=== PATIENT | male | born 1955 | race Caucasian/White ===

== ENCOUNTER → 2018-12-07 | Outpatient (CLI) | payer OTHER ==
--- NOTE | 2018-12-07 11:26 | EKG ---
[facility] [address] [place] [address] Test Date: 2018-12-07 Test Time: 11:20:48 Pat Name: SHANNON ORTIZ Department: Room: Gender: M Sld Inclusion Teacher: [place] : 1955 Requested By: FLAKO SPANGLER Order Number: [id number] Reading MD: Measurements Intervals [place] Rate: 80 P: 28 VA: 132 QRS: 26 QRSD: 94 T: 24 QT: 368 QTc: 428 Interpretive Statements SINUS RHYTHM NORMAL ECG RI6.01 Unconfirmed report No previous ECG available for comparison
== END | disposition home or self-care (01) ==
LOC: EKG 12-06 16:23
PROVIDERS: ATTEND Psychiatry & Neurology Neurology
DX: I10 Essential (primary) hypertension (principal)
CPT/HCPCS: 93005

== ENCOUNTER → 2018-12-13 | Outpatient (CLI) | payer OTHER ==
--- NOTE | 2018-12-13 12:31 | EEG ---
DATE OF SERVICE: 12/13/2018 EEG-NUMBER: [id number] OBJECTIVE: This is a 63-year-old male patient with history of abnormal movements. EEG was requested to evaluate cerebral activity and help rule out seizure. METHODS: Twenty electrodes were applied according to the international 10-20 electrode placement system. EKG monitoring, hyperventilation, intermittent photic stimulation, monopolar and bipolar montages are routinely utilized. The record was obtained on a digital system with video monitoring. FINDINGS: 1. Background: The patient was recorded in the awake, drowsy, and sleep states. The overall background amplitude is 10-30 microvolts. A posterior dominant rhythm of 8-9 Hz is observed. 2. Abnormalities: No specific epileptiform discharge or electrographic seizure is seen. No focal or diffuse slowing. 3. Activation: Hyperventilation was performed with good efforts and normal response. Intermittent photic stimulation was performed with photic driving. Photoparoxysmal response noted. IMPRESSION: This EEG is a normal study for the awake, drowsy, and sleep states. No focal, lateralizing, specific epileptiform discharge or electrographic seizure is seen. FLAKO SPANGLER MD DR: CONNIE/bob JOB#: [id number] / [id number] DENZEL
== END | disposition home or self-care (01) ==
LOC: RT 08:05
PROVIDERS: ATTEND Psychiatry & Neurology Neurology
DX: R25.9 Unspecified abnormal involuntary movements (principal)
CPT/HCPCS: 95816

== ENCOUNTER → 2021-12-14 | Outpatient (CLI) | payer MEDICARE ==
[~2021-12-14] MED LIST: AMLO-187 PO; ATOR20TA58 PO; CARB1CAP PO; GABA-585 PO; IOHEXOL 180 MG/ML 10 ML VIAL. ONE; LOSA-73 PO; methylPREDNISolone ACETATE 80 MG/ML VIAL. ONE; vitamin d PO
--- NOTE | 2021-12-14 16:16 | PDOC1 ---
INITIAL PAIN CONSULT DATE OF SERVICE: DOS: DATE: 12/14/21 TIME: 16:10 CHIEF COMPLAINT: Chief Complaint: Low back and right lower extremity pain HISTORY OF PRESENT ILLNESS: 66-year-old male presents with history of pain low back right lower extremity for approximately 2 years noncontrol of any specific injury or accident that he is aware of is getting worse over time in the low back on the right side right flank radiating to the right lower extremity posterior gluteus posterior lateral thigh lateral anterior thigh into the medial lower leg occasionally mostly in the upper leg patient reports is worse with walking standing changing positions better with sitting or laying down generally does not awaken him sleep at night does not affect his bowel bladder control but does affect his ability to walk otherwise not use any assistive devices to ambulate at this time. Patient has had physical therapy which was not significantly helpful long-term but did help temporarily also doing exercise on his own walking up to 1 mile a day 5 days a week patient is also taking meloxicam which she reports does help is been taking it since September 2021 patient also taking gabapentin but reports no significant decrease in pain with this medication. Patient scribes the pain in the back is constant sharp radiating the right lower extremity with numbness and tingling change during the day worse with activity standing walking better sitting or laying down also cramping aching pain in the back patient rates his disability rating from 0-10 10 being worst is an 8 family home responsibilities recreation social activity 7 with occupation and life support activities 6 with self-care activities. Patient of MRI scan lumbar spine showing L4-5 loss of disc height with diffuse annular disc bulge greatest right lateral with mild to moderate facet arthropathy moderate right lateral recess and moderate right neuroforaminal stenosis with mild left neuroforaminal stenosis L5-S1 shows loss of disc height with disc annular disc bulge moderate facet arthropathy and mild bilateral neuroforaminal stenosis. Patient reports no loss of motor function but significant fatigability of the lower extremities, right greater than left. PAST MEDICAL HISTORY: PMH: Parkinson's disease, hypertension, arthritis, gastropathy reflux, sleep apnea, hyperlipidemia, hearing loss PREVIOUS SURGERIES: Past Surgical Hx: Total knee replacement on the right 2019, right rotator cuff repair 2006, brain stimulation 2020 for Parkinson's disease. CURRENT MEDICATIONS: Current Meds: Active Scripts Medications Dose Route/Sig Max Daily Dose Days Date Category [vitamin d] 1,000 Mg PO 12/14/21 Reported Gabapentin (Gabapentin) 100 Mg Capsule 100 Mg PO TID 12/14/21 Reported Rytary ER 23.75 mg-95 mg Cap (Carbidopa/Levodopa) 1 Each Capsule.er 2 Cap PO TID 30 12/14/21 Reported Losartan Potassium 50 Mg Tablet 50 Mg PO DAILY 12/14/21 Reported Atorvastatin Calcium 20 Mg Tablet 1 Tab PO DAILY 12/14/21 Reported Amlodipine Besylate 10 Mg Tablet 10 Mg PO DAILY 12/14/21 Reported ALLERGIES; Allergies: Coded Allergies: lisinopril (Verified Allergy, Intermediate, Diarrhea, 12/14/21) FAMILY HISTORY: Family Hx: Parkinson's disease SOCIAL HISTORY: Social Hx: Patient drinks 2 beers a day on most days, does not smoke not use any illegal illicit or recreational drugs is lives with his spouse lives locally in [facility] REVIEW OF SYSTEMS: ROS: Positive for those items mentioned in history of present illness, all systems are reviewed, otherwise negative ,and are complete full and well-documented on patient's chart. PHYSICAL EXAM: VS: Blood pressure is 133/85 pulse 91 respirations 18 temperature 98.5 degrees height is 5 feet 8 inches weight is 188 pounds PE: PHYSICAL EXAMINATION: GENERAL: The patient is awake, alert, oriented, appropriate, very pleasant in demeanor HEENT: Shows normocephalic, atraumatic. Extraocular movements are intact and symmetrical. Oral cavity: Mucous membranes moist and pink. Dentition is intact. NECK: Shows anterior throat supple without palpable lymphadenopathy noted. Swallow reflex symmetrical. CHEST: Shows normal on inspection. Breath sounds are clear bilaterally, distant but no rales rhonchi or wheezes auscultated. HEART: Shows S1, S2 clear. No murmurs auscultated. ABDOMEN: Soft, nontender, nondistended. No palpable organomegaly is noted. No rebound or guarding demonstrated. BACK: Shows spine grossly in the midline. Normal-appearing cervical lordotic curvature. There is slightly increased thoracic kyphosis, some minor flattening of the lumbar lordotic curvature. Lumbar paraspinous muscles show symmetrical on inspection, on palpation shows some moderate tenderness diffusely throughout the upper, middle and lower distribution of the paraspinous muscles bilaterally and also into the lower thoracic paraspinous musculature, firm and tender, but without specific trigger points, without radiation of pain. The patient has good rotational motion of the lumbar spine, both laterally as well as extension and flexion without significant difficulty. No tenderness over the spinous processes, sacrum or sacroiliac regions. EXTREMITIES: Patient has resting tremor in the right upper extremity. Lower extremities show deep tendon reflexes 1+ in the patellar and tendo calcaneus tendons. Motor exam is 4 on a scale of 5 with right dorsiflexion, extension, quadriceps and hamstring flexion and 5/5 on the left. Peripheral pulses are 1+ posterior tibial. No peripheral edema is noted bilaterally. Lower extremities are warm and dry to touch, equal in color and appearance. Straight leg raise noted to be positive on the right about 40 degrees, left side is negative. Gaenslen's and Judson's maneuvers are negative bilaterally. The patient is able to stand, stand on his toes without significant difficulty or loss of balance walks with a slight favoring gait favoring the right lower extremity would not use any assistive devices to ambulate. SKIN: Shows warm and dry, good turgor. No edema. No sores, rashes or bruising throughout. IMPRESSION: Impression: 66-year-old male with 2-year history of low back right lower extremity pain in a radicular fashion MRI scan lumbar spine as noted Hypertension Arthritis Parkinson's disease Sleep apnea Hearing loss Plan: Options were discussed with the patient patient spouse who accompanied him to his visit today including conservative medical management continued physical therapies and interventional techniques. Patient would like pursue interventional techniques. We discussed a lumbar epidural steroid injection using descriptions as well as anatomical models to describe the procedure. Risk s were discussed including but not limited to: Bleeding, infection, possibility of epidural hematoma and subsequent neurological compromise, dural puncture, headaches, spinal cord and/or nerve damage, side effects of steroid medication, and poor results regarding pain control. Patient understands and wished to proceed. Patient will return to the clinic in approximately 2 weeks for follow- up, was counseled as to return appointment, activity level, and side effect to be aware of. Procedure is lumbar epidural steroid injection under local anesthetic using sterile prep and drape at the L4-5 level using C-arm fluoroscopic guidance in both AP and lateral views medications injected is 120 mg Depo-Medrol +10mL preservative-free normal saline and 2 mL contrast- condition at discharge is stable patient tolerated procedure well had no complications. KINGSTON SMITH MD Dec 14, 2021 16:16
--- NOTE | 2021-12-14 16:17 | PDOC4 ---
Procedure Note: ICD 10 Code: ICD 10 Code: M54.16 M51.36 N 48.06 Procedure Note: Patient was consented for lumbar epidural steroid injection with fluoroscopic guidance. Risks were discussed including but not limited to: Bleeding, infection, possibility of epidural hematoma and subsequent neurological compromise, dural puncture, headaches, spinal cord and/or nerve damage, side effects of steroid medication, and poor results regarding pain control. Patient understands and wished to proceed. Procedure is lumbar epidural steroid injection under local anesthetic using kathya rile prep and drape at the L4-5 level using C-arm fluoroscopic guidance in both AP and lateral views medications injected is 120 mg Depo-Medrol +10mL preservative-free normal saline and 2 mL contrast- condition at discharge is stable patient tolerated procedure well had no complications. KINGSTON SMITH MD Dec 14, 2021 16:17
== END | disposition home or self-care (01) ==
LOC: PNCL 14:32
PROVIDERS: ATTEND Anesthesiology
DX: M54.50 Low back pain, unspecified (principal); M51.16 Intervertebral disc disorders with radiculopathy, lumbar region; M48.061 Spinal stenosis, lumbar region without neurogenic claudication; Z79.899 Other long term (current) drug therapy; Z88.8 Allergy status to other drugs, medicaments and biological substances
CPT/HCPCS: 62323; J1040; Q9965

== ENCOUNTER → 2022-01-03 | Outpatient (CLI) | payer MEDICARE ==
[~2022-01-03] MED LIST changes: +DEXAMETHASONE PRES.FREE 10 MG/ML VIAL. ONE; -methylPREDNISolone ACETATE 80 MG/ML VIAL. ONE
--- NOTE | 2022-01-03 13:32 | PDOC4 ---
Procedure Note: ICD 10 Code: ICD 10 Code: M54.16 M51.36 M4 8.06 Procedure Note: Patient was consented for lumbar epidural steroid injection fluoroscopic guidance. Risks were discussed including but not limited to: Bleeding, infection, possibility of epidural hematoma and subsequent neurological compromise, dural puncture, headaches, spinal cord and/or nerve damage, side effects of steroid medication, and poor results regarding pain control. Patient understands and wished to proceed. Procedure is lumbar epidural steroid injection under local anesthetic using sterile prep and drape at the L4-5 level using C-arm fluoroscopic guidance in both AP and lateral views medications injected is 20 mg dexamethasone +10mL preservative-free normal saline and 2 mL contrast- condition at discharge is stable patient tolerated procedure well had no complications. KINGSTON SMITH MD Jan 03, 2022 13:32
--- NOTE | 2022-01-03 13:32 | PDOC ---
Progress Note - Pain Clinic Date of Service: DOS: DATE: 01/03/22 TIME: 13:29 Diagnosis: Dx: Lumbar radiculopathy with lumbar degenerative disease and lumbar spinal stenosis History or Present Illness: HPI: 66-year-old male returns for follow-up status post lumbar epidural steroid injection x1. Patient reports about 75% improvement for the first 2 weeks now pain returning in the low back and the right lower extremity patient reports in the posterior gluteus posterior lateral thigh lateral anterior thigh anteromedial thigh medial lower leg much improved with the first 2 weeks he was increase his distance walking doing household activities greater ease and comfort travel with greater ease sleeping with much better ability patient reports still not awakening from sleep at night he sleeping fairly well rates his pain as a 7 on scale 10 is worse over the past week for an average and least 4 today. Patient reports is aching and sharp in the back can be tight and cramping as well with some shooting pain that is radiating in the right lower extremity patient reports no loss of motor function no bowel or bladder incontinence. Physical Exam: VS: Blood pressure is 134/94 pulse 96 respirations 18 temperature is 97.9 F weight is 190 pounds height is 5 foot 8 inches. PE: PHYSICAL EXAMINATION: GENERAL: The patient is awake, alert, oriented, appropriate, very pleasant in demeanor HEENT: Shows normocephalic, atraumatic. Extraocular movements are intact and symmetrical. Oral cavity: Mucous membranes moist and pink. Dentition is intact. NECK: Shows anterior throat supple without palpable lymphadenopathy noted. Swallow reflex symmetrical. CHEST: Shows normal on inspection. Breath sounds are clear bilaterally, no rales or rhonchi. HEART: Shows S1, S2 clear. No murmurs auscultated. ABDOMEN: Soft, nontender, nondistended. No palpable organomegaly is noted. BACK: Shows spine grossly in the midline. Normal-appearing cervical lordotic curvature. There is mildly increased thoracic kyphosis, some flattening of the lumbar lordotic curvature. Lumbar paraspinous muscles show symmetrical on inspection, on palpation shows some moderate tenderness diffusely throughout the upper, middle and lower distribution of the paraspinous muscles without specific trigger points, without radiation of pain. The patient has good rotational motion of the lumbar spine, both laterally as well as extension and flexion without significant difficulty. No tenderness over the spinous processes, sacrum or sacroiliac regions. EXTREMITIES: Lower extremities show deep tendon reflexes 1 in the patellar and tendo calcaneus tendons. Motor exam is 4 on a scale of 5 with right dorsiflexion, extension, quadriceps and hamstring flexion and 5/5 on the left. Peripheral pulses are 1+ posterior tibial. No peripheral edema is noted bilaterally. Lower extremities are warm and dry. SKIN: Shows warm and dry, good turgor. No edema. No sores, rashes or bruising throughout. Procedure: Procedure: Options were discussed with the patient. Patient's old chart was viewed as his current medication regimen updated current review of systems updated today as well. We will proceed with a lumbar epidural steroid ejections today with fluoroscopic guidance. Risks were discussed including but not limited to: Bleeding, infection, possibility of epidural hematoma and subsequent neurological compromise, dural puncture, headaches, spinal cord and/or nerve damage, side effects of steroid medication, and poor results regarding pain control. Patient understands and wished to proceed. Patient will return to the clinic in approximate 2 weeks for follow-up, was counseled as to return appointment, active level, and side effect to be aware of. Medication Injected: Med Injected: Procedure is lumbar epidural steroid injection under local anesthetic using sterile prep and drape at the L4-5 level using C-arm fluoroscopic guidance in both AP and lateral views medications injected is 20 mg dexamethasone +10mL preservative-free normal saline and 2 mL contrast- condition at discharge is stable patient tolerated procedure well had no complications. Condition at Discharge: Condition at Discharge: Condition at discharge is stable, patient tolerated the procedure well and had no complications. KINGSTON SMITH MD Jan 03, 2022 13:32
== END | disposition home or self-care (01) ==
LOC: PNCL 12:47
PROVIDERS: ATTEND Anesthesiology
DX: M51.16 Intervertebral disc disorders with radiculopathy, lumbar region (principal); M48.061 Spinal stenosis, lumbar region without neurogenic claudication; Z79.899 Other long term (current) drug therapy; Z88.8 Allergy status to other drugs, medicaments and biological substances
CPT/HCPCS: 62323; J1100; Q9965